=== PATIENT | female | born 1955 | race Two or more races ===

== ENCOUNTER 2019-06-09 16:09 | Inpatient (IN) | payer MEDICARE, OTHER ==
[~2019-06-09] VITALS: Ht 165.1 cm; Wt 82.6 kg
[~2019-06-09 16:09] MED LIST: ALEN70TA6 PO; AMIO200T4 PO; BUPR150T10 PO; CALC0.5C11 PO; CYCLOSPORINE PO; DIPH1TAB PO; ESCI20TA PO; FOLI1TAB16 PO; GABA-532 PO; HYDR-4384 PO; LEVO50TA8 PO; METO-356 PO; MYCO180T3 PO; PANT40TA4 PO; ROSU5TAB PO; TICA90TA PO; WARF3TAB7 PO; WARF4TAB8 PO; ZOLP5TAB8 PO
--- NOTE | 2019-06-09 16:26 | NUR ---
PT BIB EMS FOR SOB FOR THE PAST 13 DAYS, PT IS AAOX3, NOT IN RESPIRATORY DISTRESS, HOOKED TO MONITOR, KEPT RESTED AND COMFORTABLE, WILL CONTINUE TO MONITOR.
--- NOTE | 2019-06-09 16:30 | NUR ---
AT BEDSIDE FOR EVAL.
--- NOTE | 2019-06-09 16:35 | NUR ---
IV LINE ESTABLISHED, BLOOD DRAWNED AND SENT TO LAB.
[2019-06-09] MEDS ORDERED: TICA90TA PO (16:42)
[2019-06-09] MEDS ORDERED: ARIP10TA9 PO (16:42)
[2019-06-09] MEDS ORDERED: ACET-868 PO (16:42)
[2019-06-09] MEDS ORDERED: ALBU18HF2 IH (16:42)
[2019-06-09] MEDS ORDERED: ATOR10TA PO (16:42)
[2019-06-09] MEDS ORDERED: CEFU250T85 PO (16:42)
[2019-06-09] MEDS ORDERED: CALC667C6 PO (16:42)
[2019-06-09] MEDS ORDERED: ESOM40CA PO (16:42)
[2019-06-09] MEDS ORDERED: CODE10LI PO (16:42)
[2019-06-09] MEDS ORDERED: TRAM50TA2 PO (16:42)
[2019-06-09] MEDS ORDERED: SEVE800T7 PO (16:42)
[2019-06-09] MEDS ORDERED: QUET25TA PO (16:42)
--- NOTE | 2019-06-09 16:42 | NUR ---
RED TECH AT BEDSIDE FOR XRAY.
[2019-06-09 16:48] LABS: BASOPHILS # (AUTO) 0.1 /CMM (0.0-0.2); BASOPHILS % (AUTO) 1.2 % (0.0-2.0); EOSINOPHILS % (AUTO) 9.5 % (0.0-6.0); HEMATOCRIT 24 % (33-45); HEMOGLOBIN 7.9 g/dL (11.5-14.8); LYMPHOCYTES # (AUTO) 0.9 /CMM (0.8-4.8); LYMPHOCYTES % (AUTO) 19.1 % (20.0-44.0); MEAN CORPUSCULAR HGB CONC 33 g/dl (31.0-36.0); MEAN CORPUSCULAR VOLUME 94 fL (82-100); MONOCYTES # (AUTO) 0.2 /CMM (0.1-1.30); MONOCYTES % (AUTO) 5.2 % (2.0-12.0); NEUTROPHILS # (AUTO) 3.1 /CMM (1.8-8.9); PLATELET COUNT (AUTO) 184 /CMM (150-450); RED BLOOD CELL COUNT(AUTO) 2.58 MIL/uL (4.0-5.2); WHITE BLOOD COUNT (AUTO) 4.8 K/uL (4.3-11.0)
[2019-06-09 17:00] LABS: CALCIUM, SERUM 8.3 mg/dL (8.5-10.1); CREATININE 3.5 mg/dL (0.6-1.3); POTASSIUM 3.3 mmol/L (3.5-5.1)
[2019-06-09 17:08] LABS: ALBUMIN 2.8 g/dL (3.4-5.0); BILIRUBIN,DIRECT 0.1 mg/dL (0.0-0.2); BILIRUBIN,TOTAL 0.3 mg/dL (0.2-1.0); TOTAL PROTEIN, SERUM 7.9 g/dL (6.4-8.2)
--- NOTE | 2019-06-09 18:16 | NUR ---
osbaldo bryant - paged via exchange
--- NOTE | 2019-06-09 20:28 | NUR ---
REPORT GIVEN TO MICHELLE NUNEZ.
--- NOTE | 2019-06-09 20:45 | NUR ---
DEMAND EQUIPMENT REPAIRER ADMITTING NOTES RECEIVED PT FROM ER VIA [facility] IN STABLE CONDITION. PT A/O X3 AND ABLE TO MAKE NEEDS KNOWN. PT HARD OF HEARING. RESPIRATIONS EVEN AND UNLABORED WITH NO S/S OF ACUTE DISTRESS OR SOB NOTED. PT ON 2L VIA NC TOLERATING WELL. PT WITH RAC #20G PATENT AND INTACT AND SL. NO COMPLAINTS OF PAIN AT THIS TIME. PT REFUSES TELE BOX TO BE PUT ON; PT STATES THAT SHE IS ALLERGIC AND HER SKIN IS SENSITIVE. SAFETY MEASURES IN PLACE WITH BED IN LOWEST LOCKED POSITION WITH SIDE RAILS UP X2. CALL LIGHT WITHIN REACH. WILL CONTINUE TO MONITOR.
--- NOTE | 2019-06-09 21:00 | NUR ---
RN NOTES: GIVEN REPORT TO NIYAH NUNEZ FOR CONTINUITY OF CARE.
--- NOTE | 2019-06-09 21:05 | NUR ---
MS RN NOTES MD STATE THAT PT DOES NOT NEED TO BE ON TELE MONITORING AND WILL BE MED SURG.
[2019-06-09] MEDS ORDERED: ZOLPIDEM TARTRATE 5 MG TABLET PO PRN (21:30)
[2019-06-09] MEDS ORDERED: ALBUTEROL SULFATE INH 18 GM HFA.AER.AD IH PRN (21:30)
[2019-06-09] MEDS ORDERED: ACETAMINOPHEN 325 MG TABLET PO PRN ×2 (21:30)
[2019-06-09] MEDS ORDERED: Z GUARD REMEDY 2 OZ OINT TP PRN ×2 (21:30→23:00)
[2019-06-09] MEDS ORDERED: MAG HYDROX/AL HYDROX/SIMETH 30 ML UDC PO PRN (21:30)
[2019-06-09] MEDS ORDERED: HYDROCODONE/APAP 5/325MG 1 EACH TABLET PO PRN (21:30)
[2019-06-09] MEDS ORDERED: ALENDRONATE 70 MG TABLET PO SCH (21:30)
[2019-06-09] MEDS ORDERED: TRAMADOL HCL 50 MG TABLET PO PRN (21:30)
[2019-06-09] MEDS ORDERED: MAGNESIUM HYDROXIDE 30 ML UDC PO PRN (21:30)
[2019-06-09] MEDS ORDERED: GUAIFENESIN/CODEINE 10 ML UDC PO PRN (21:30)
[2019-06-09] MEDS ORDERED: ONDANSETRON HCL/PF 4 MG/2 ML VIAL IVP PRN (21:30)
[2019-06-09 22:09] VITALS: BP 173/86
--- NOTE | 2019-06-09 22:30 | NUR ---
MS RN NOTES PT BP 173/86. MADE AWARE WITH NO NEW ORDERS. STATED THAT PT NEEDS DIALYSIS AND THAT DIALYSIS WILL TAKE CARE OF IT.
[2019-06-09] MEDS: QUETIAPINE FUMARATE 25 MG TABLET PO SCH (22:58)
[2019-06-09] MEDS: ATORVASTATIN 10 MG TABLET PO SCH (22:58)
[2019-06-09] MEDS: ZOLPIDEM TARTRATE 5 MG TABLET PO SCH (23:30)
[2019-06-10 06:32] LABS: EOSINOPHILS % (AUTO) 22.5 % (0.0-6.0); HEMATOCRIT 23 % (33-45); HEMOGLOBIN 7.7 g/dL (11.5-14.8); LYMPHOCYTES # (AUTO) 0.9 /CMM (0.8-4.8); MEAN CORPUSCULAR HGB CONC 33 g/dl (31.0-36.0); MEAN CORPUSCULAR VOLUME 94 fL (82-100); MONOCYTES # (AUTO) 0.3 /CMM (0.1-1.30); MONOCYTES % (AUTO) 6.3 % (2.0-12.0); NEUTROPHILS # (AUTO) 2.1 /CMM (1.8-8.9); NEUTROPHILS % (AUTO) 49.2 % (43.0-81.0); PLATELET COUNT (AUTO) 182 /CMM (150-450); WHITE BLOOD COUNT (AUTO) 4.3 K/uL (4.3-11.0)
[2019-06-10 06:59] LABS: CALCIUM, SERUM 7.9 mg/dL (8.5-10.1); CREATININE 4.2 mg/dL (0.6-1.3); PHOSPHORUS 3.5 mg/dL (2.5-4.9); POTASSIUM 3.1 mmol/L (3.5-5.1)
--- NOTE | 2019-06-10 07:03 | NUR ---
MS RN NOTES PT IN BED SLEEPING BUT EASILY AWOKEN VERBALLY OR BY TOUCH. PT A/O X3 AND ABLE TO MAKE NEEDS KNOWN. PT HARD OF HEARING. RESPIRATIONS EVEN AND UNLABORED WITH NO S/S OF ACUTE DISTRESS OR SOB NOTED THROUGHOUT SHIFT. PT ON 2L VIA NC TOLERATING WELL. PT WITH RAC #20G PATENT AND INTACT AND SL. NO COMPLAINTS OF PAIN AT THIS TIME. SAFETY MEASURES IN PLACE WITH BED IN LOWEST LOCKED POSITION WITH SIDE RAILS UP X2. CALL LIGHT WITHIN REACH. WILL ENDORSE TO ON COMING NURSE FOR ELOISE.
[2019-06-10 08:00] VITALS: BP 164/74
--- NOTE | 2019-06-10 08:00 | NUR ---
MS RN AM NOTES RECEIVED PT A/O X3 AND ABLE TO MAKE NEEDS KNOWN. PT HARD OF HEARING. RESPIRATIONS EVEN AND UNLABORED WITH NO S/S OF ACUTE DISTRESS OR SOB NOTED. PT ON 2L VIA NC TOLERATING WELL. PT WITH RAC #20G PATENT AND INTACT AND SL. NO COMPLAINTS OF PAIN AT THIS TIME. SAFETY MEASURES IN PLACE WITH BED IN LOWEST LOCKED POSITION WITH SIDE RAILS UP X2. CALL LIGHT WITHIN REACH. WILL CONTINUE TO MONITOR.
[2019-06-10] MEDS: SEVELAMER CARBONATE 800 MG TABLET PO SCH ×3 (08:02→17:04)
[2019-06-10] MEDS: LEVOTHYROXINE SODIUM 50 MCG TABLET PO SCH (08:02)
[2019-06-10] MEDS: TICAGRELOR 90 MG TABLET PO SCH ×2 (08:46→17:03)
[2019-06-10] MEDS: FOLIC ACID 1 MG TABLET PO SCH (08:47)
[2019-06-10] MEDS: PANTOPRAZOLE 40 MG TABLET.DR PO SCH (08:49)
[2019-06-10] MEDS: CALCIUM ACETATE 667 MG TABLET PO SCH ×3 (08:49→17:03)
[2019-06-10 08:51] LABS: FERRITIN 647 ng/mL (8-388)
[2019-06-10 09:09] LABS: IRON, SERUM 47 ug/dl (50-175); TOTAL IRON BINDING CAPACITY 163 ug/dl (250-450)
[2019-06-10] MEDS: AMIODARONE HCL 200 MG TABLET PO SCH (10:13)
[2019-06-10] MEDS: CEFUROXIME AXETIL 250 MG TABLET PO SCH (10:15)
[2019-06-10 10:16] LABS: EOSINOPHILS % (MANUAL) 21 % (0-4); LYMPHOCYTES % (MANUAL) 21 % (16-48); MONOCYTES % (MANUAL) 4 % (0-11.0); NEUTROPHILS % (MANUAL) 54 (42-76)
[2019-06-10] MEDS ORDERED: ALBUTEROL FS 2.5 MG/0.5 ML VIAL.NEB NEB PRN (13:30)
--- NOTE | 2019-06-10 18:47 | NUR ---
PT RESTING IN BED WITH NAUSEA RESOLVED WITH ZOFRAN IV GIVEN.PT C/O THAT SHE FELT NAUSEOUS AT THE SMELL OF THE CARROTS IN HER DINNER TRAY. CALLED BRISASCRAPER BURRER WHO STATED THAT HE WILL DO DIALYSIS ON THE PT SOON. DENIES ANY DISTRESS.CALL LIGHT PLACED WITHIN REACH.
--- NOTE | 2019-06-10 19:10 | NUR ---
MS RN OPENING NOTES Patient received in bed, alert, oriented x 3. Breathing even and unlabored. Not in any distress. Dialysis ongoing at this time. No complaints of pain or discomfort. Safety measures in place. Call light within reach, bed in low, locked position. Will continue to monitor accordingly
[2019-06-10 20:00] VITALS: BP 160/73
[2019-06-10 21:25] VITALS: BP 160/73
--- NOTE | 2019-06-10 21:26 | NUR ---
RN NOTES Dialysis completed. 2,600mL out. V/S post dialysis: BP- 160/73, HR-77, RR- 18, TEMP- 97.8F, SPO2- 97%
[2019-06-10] MEDS: ARIPIPRAZOLE 5 MG TABLET PO SCH (21:30)
[2019-06-10] MEDS: ATORVASTATIN 10 MG TABLET PO SCH (21:30)
[2019-06-10] MEDS: QUETIAPINE FUMARATE 25 MG TABLET PO SCH (21:31)
[2019-06-10] MEDS: ZOLPIDEM TARTRATE 5 MG TABLET PO SCH (22:30)
--- NOTE | 2019-06-11 06:35 | NUR ---
MS RN CLOSING NOTES PATIENT IN BED SLEEPING, EASY TO AROUSE. PT A/O X3 AND ABLE TO MAKE NEEDS KNOWN. PT HARD OF HEARING. RESPIRATIONS EVEN AND UNLABORED WITH NO S/S OF ACUTE DISTRESS OR SOB NOTED THROUGHOUT SHIFT. NO COMPLAINTS OF PAIN AT THIS TIME. SAFETY MEASURES IN PLACE WITH BED IN LOWEST LOCKED POSITION WITH SIDE RAILS UP X2. CALL LIGHT WITHIN REACH. WILL ENDORSE ELOISE TO ON COMING NURSE.
--- NOTE | 2019-06-11 07:10 | NUR ---
MS RN NOTES PATIENT IN BED ALERT ORIENTED X 3. NO ACUTE DISTRESS NOTED. BREATHING UNLABORED. IV ACCESS PATENT AND INTACT, NO REDNESS OR SWELLING NOTED. SAFETY MEASURES IN PLACE. CALL LIGHT WITHIN REACH. WILL CONTINUE TO MONITOR ACCORDINGLY.
[2019-06-11 07:47] LABS: BASOPHILS % (AUTO) 1.1 % (0.0-2.0); EOSINOPHILS % (AUTO) 24.8 % (0.0-6.0); HEMATOCRIT 25 % (33-45); LYMPHOCYTES # (AUTO) 0.6 /CMM (0.8-4.8); LYMPHOCYTES % (AUTO) 14.8 % (20.0-44.0); MEAN CORPUSCULAR HGB CONC 32 g/dl (31.0-36.0); MEAN CORPUSCULAR VOLUME 94 fL (82-100); MONOCYTES # (AUTO) 0.3 /CMM (0.1-1.30); MONOCYTES % (AUTO) 7.1 % (2.0-12.0); NEUTROPHILS # (AUTO) 2.2 /CMM (1.8-8.9); NEUTROPHILS % (AUTO) 52.2 % (43.0-81.0); PLATELET COUNT (AUTO) 184 /CMM (150-450); RED BLOOD CELL COUNT(AUTO) 2.64 MIL/uL (4.0-5.2); WHITE BLOOD COUNT (AUTO) 4.2 K/uL (4.3-11.0)
[2019-06-11] MEDS: PANTOPRAZOLE 40 MG TABLET.DR PO SCH (07:48)
[2019-06-11] MEDS: LEVOTHYROXINE SODIUM 50 MCG TABLET PO SCH (07:48)
[2019-06-11 08:00] VITALS: BP 147/61
[2019-06-11 08:12] LABS: ALANINE AMINOTRANSFERASE 9 U/L (12-78); ALBUMIN 2.4 g/dL (3.4-5.0); ALKALINE PHOSPHATASE 126 U/L (46-116); ASPARTATE AMINOTRANSFERASE 10 U/L (15-37); BILIRUBIN,TOTAL 0.3 mg/dL (0.2-1.0); CALCIUM, SERUM 8.3 mg/dL (8.5-10.1); CARBON DIOXIDE 30 mmol/L (21-32); CHLORIDE 101 mmol/L (98-107); GLUCOSE 97 mg/dL (74-106); MAGNESIUM 1.9 mg/dL (1.8-2.4); PHOSPHORUS 3.1 mg/dL (2.5-4.9); POTASSIUM 3.5 mmol/L (3.5-5.1); SODIUM SERUM 140 mmol/L (136-145); UREA NITROGEN, BLOOD 17 mg/dL (7-18)
[2019-06-11] MEDS: SEVELAMER CARBONATE 800 MG TABLET PO SCH ×3 (08:19→17:19)
[2019-06-11] MEDS: CALCIUM ACETATE 667 MG TABLET PO SCH ×3 (08:20→17:19)
[2019-06-11 08:53] LABS: EOSINOPHILS % (MANUAL) 23 % (0-4); LYMPHOCYTES % (MANUAL) 16 % (16-48); MONOCYTES % (MANUAL) 10 % (0-11.0); NEUTROPHILS % (MANUAL) 51 (42-76)
[2019-06-11] MEDS: CEFUROXIME AXETIL 250 MG TABLET PO SCH (09:26)
[2019-06-11] MEDS: TICAGRELOR 90 MG TABLET PO SCH ×2 (09:26→17:19)
[2019-06-11] MEDS: AMIODARONE HCL 200 MG TABLET PO SCH (09:27)
[2019-06-11] MEDS: FOLIC ACID 1 MG TABLET PO SCH (09:27)
--- NOTE | 2019-06-11 15:00 | NUR ---
MS RN NOTES SEEN AND EVALUATED BY TEODORO AGUIAR WITH NEW ORDERS MADE. NOTED AND CARRIED OUT.
[2019-06-11 16:00] VITALS: BP 168/70
[2019-06-11] MEDS: LEVOFLOXACIN 250 MG /D5W 50 ML 250 MG in PREMIX 1 EA IV SCH (16:37)
--- NOTE | 2019-06-11 18:58 | NUR ---
MS RN NOTES PATIENT IN BED ALERT ORIENTED X 3. NO ACUTE DISTRESS NOTED. BREATHING UNLABORED. IV ACCESS PATENT AND INTACT, NO REDNESS OR SWELLING NOTED.DUE MEDICATIONS GIVEN, NO ASE NOTED. NEEDS ATTENDED AND ANTICIPATED. KEPT CLEAN DRY AND COMFORTABLE. SAFETY MEASURES IN PLACE. CALL LIGHT WITHIN REACH. WILL ENDORSE TO NIGHT NURSE FOR CONTINUITY OF CARE.
--- NOTE | 2019-06-11 19:25 | NUR ---
MS/RN OPENING NOTES RECEIVED PATIENT IN [place], RESTING IN BED, RESPIRATIONS EVEN AND UNLABORED, ON 2LITER OXYGEN VIA NC, SKIN WARM TO TOUCH. ABLE TO VERBALIZE NEEDS, IV SITE ON RIGHT AC WITH RIGHT GROIN FISTULA, HEMODIALYSIS EVERY MWF, B/P ON LEFT LEG ONLY. BED LOCKED, CALL LIGHTS WITHIN REACH. WILL MONITOR, INSTRUCTED TO CALL FOR ASSISTANCE, WILL MONITOR.RECEIVED ENDORSEMENT FROM AM RN FOR ELOISE.
[2019-06-11 19:43] VITALS: BP 159/64
[2019-06-11 20:00] VITALS: BP 159/64
--- NOTE | 2019-06-11 21:00 | NUR ---
MS/RN NOTES' PATIENT WITH SCHEDULED MEDICATION FOR SLEEP AND GIVEN, TO CHECK IN THE MORNING FOR PHOTO TO BE TAKEN OF DISCOLORATION OF BODY PARTS AND SACRAL AREA,,REDNESS WILL FOLOW UP AGAIN IN MORNING ,
[2019-06-11] MEDS: ARIPIPRAZOLE 5 MG TABLET PO SCH (21:26)
[2019-06-11] MEDS: ATORVASTATIN 10 MG TABLET PO SCH (21:26)
[2019-06-11] MEDS: ZOLPIDEM TARTRATE 5 MG TABLET PO SCH (21:26)
--- NOTE | 2019-06-11 21:26 | NUR ---
MS/RN NOTES SLEEP MEDICATION AMBIEN 10 MG PO GIVEN SCHEDULED MEDICATION. MONITORED FOR SLEEP.
[2019-06-11] MEDS: QUETIAPINE FUMARATE 25 MG TABLET PO SCH (21:27)
--- NOTE | 2019-06-12 06:24 | NUR ---
MS/RN NOTES PATIENT ABLE TO SLEEP DURING THE NIGHT, ALERT, ORIENTED X3, ABLE TO VERBALIZE NEEDS, PARTICIPATIVE TO CARE, RESPIRATIONS EVEN AND UNLABORED, PHOTO OF DICOLORATION AND REDNESS WAS DONE, BED LOCKED, CALL LIGHTS WITHIN REACH, WILL MONITOR AND WILL ENDORSE TO AM RN FOR ELOISE.
[2019-06-12 06:25] LABS: BASOPHILS % (AUTO) 0.9 % (0.0-2.0); HEMATOCRIT 27 % (33-45); HEMOGLOBIN 8.7 g/dL (11.5-14.8); LYMPHOCYTES % (AUTO) 19.7 % (20.0-44.0); MEAN CORPUSCULAR HGB CONC 32 g/dl (31.0-36.0); MEAN CORPUSCULAR VOLUME 95 fL (82-100); MONOCYTES # (AUTO) 0.3 /CMM (0.1-1.30); MONOCYTES % (AUTO) 6.9 % (2.0-12.0); NEUTROPHILS # (AUTO) 2.2 /CMM (1.8-8.9); NEUTROPHILS % (AUTO) 45.4 % (43.0-81.0); PLATELET COUNT (AUTO) 195 /CMM (150-450); RED BLOOD CELL COUNT(AUTO) 2.87 MIL/uL (4.0-5.2); WHITE BLOOD COUNT (AUTO) 4.8 K/uL (4.3-11.0)
[2019-06-12 06:37] LABS: EOSINOPHILS % (AUTO) 27.1 % (0.0-6.0)
[2019-06-12 06:55] LABS: CALCIUM, SERUM 8.5 mg/dL (8.5-10.1); CREATININE 5.7 mg/dL (0.6-1.3); MAGNESIUM 2.1 mg/dL (1.8-2.4); PHOSPHORUS 3.1 mg/dL (2.5-4.9); POTASSIUM 3.6 mmol/L (3.5-5.1)
--- NOTE | 2019-06-12 07:25 | NUR ---
M/S RN NOTES PATIENT RESTING, LYING IN BED, NO RESPIRATORY DISTRESS, ON O2 2L VIA NASAL CANULA. PATIENT WITH NO C/O PAIN AT THIS TIME. IV HL ON THE RAC #20G, INTACT AND PATENT. PATIENT'S NEEDS ATTENDED. BED ON LOWEST LOCKED POSITION, CALL LIGHT WITHIN REACH. WILL CONTINUE TO MONITOR.
[2019-06-12 07:27] LABS: MONOCYTES % (MANUAL) 8 % (0-11.0); NEUTROPHILS % (MANUAL) 49 (42-76)
[2019-06-12 07:28] LABS: EOSINOPHILS % (MANUAL) 24 % (0-4); LYMPHOCYTES % (MANUAL) 19 % (16-48)
[2019-06-12] MEDS: CALCIUM ACETATE 667 MG TABLET PO SCH ×3 (07:54→18:00)
[2019-06-12] MEDS: SEVELAMER CARBONATE 800 MG TABLET PO SCH ×3 (07:54→18:00)
[2019-06-12] MEDS: LEVOTHYROXINE SODIUM 50 MCG TABLET PO SCH (07:55)
[2019-06-12] MEDS: PANTOPRAZOLE 40 MG TABLET.DR PO SCH (07:55)
[2019-06-12 08:00] VITALS: BP 160/67
[2019-06-12] MEDS: AMIODARONE HCL 200 MG TABLET PO SCH (09:00)
[2019-06-12] MEDS: FOLIC ACID 1 MG TABLET PO SCH (09:00)
[2019-06-12] MEDS: TICAGRELOR 90 MG TABLET PO SCH ×2 (09:01→17:00)
[2019-06-12] MEDS: CEFUROXIME AXETIL 250 MG TABLET PO SCH (09:01)
[2019-06-12] MEDS ORDERED: hydrALAZINE HCL 25 MG TABLET PO PRN (16:30)
[2019-06-12] MEDS: AMLODIPINE BESYLATE 5 MG TABLET PO SCH (16:30)
--- NOTE | 2019-06-12 16:30 | NUR ---
M/S RN NOTES NORVASC NOT GIVEN, PATIENT HAVING DIALYSIS
[2019-06-12] MEDS: LACTOBACILLUS RHAMNOSUS GG 1 EACH CAP.SPRINK PO SCH (17:00)
--- NOTE | 2019-06-12 18:15 | NUR ---
M/S RN NOTES PATIENT AWAKE LYING IN BED, NO RESPIRATORY DISTRESS, NO C/O PAIN AT THIS TIME. IV ACCESS SITE INTACT AND PATENT. PATIENT'S NEEDS ATTENDED. BED ON LOWEST LOCKED POSITION, CALL LIGHT WITHIN REACH. WILL ENDORSE TO ONCOMING NURSE
--- NOTE | 2019-06-12 18:23 | NUR ---
M/S RN NOTES MEDICATIONS NOT GIVEN FOR 1700 AND 1800, PATIENT ON DIALYSIS
--- NOTE | 2019-06-12 18:30 | NUR ---
M/S RN NOTES PATIENT DONE WITH HD, 2000ML OUT. PATIENT'S VSS. PATIENT IN NO ACUTE DISTRESS.
--- NOTE | 2019-06-12 19:48 | NUR ---
RN MS OPENING NOTES RECEIVED PATIENT IN BED AWAKE, ALERT AND ORIENTED X3, VERBALLY RESPONSIVE, ABLE TO MAKE NEEDS KNOWN. BREATHING EVEN AND UNLABORED. NO SOB NOTED. ON 2LPM VIA NC. DENIES PAIN OR DISCOMFORT. IV ON RIGHT AC INTACT AND PATENT. PATIENT ALSO NOTED WITH RIGHT GROIN FISTULA, CLEAN DRY AND INTACT. PATIENT IS S/P DIALYSIS TODAY, NO ADVERSE REACTIONS NOTED. ALL OTHER NEEDS ATTENDED TO. SAFETY MEASURES IN PLACE. CALL LIGHT WITHIN REACH. WILL CONTINUE TO MONITOR.
[2019-06-12 20:00] VITALS: BP 154/66
[2019-06-12 20:32] LABS: APPEARANCE,URINE SL CLOUDY (CLEAR); BILIRUBIN,URINE 1+ (NEGATIVE); BLOOD, URINE 2+ Ery/uL (NEGATIVE); COLOR,URINE YELLOW (YELLOW); KETONES,URINE NEGATIVE (NEGATIVE); LEUKOCYTE ESTERASE ,URINE TRACE (NEGATIVE); NITRITE, URINE NEGATIVE (NEGATIVE); PROTEIN,URINE 3+ mg/dl (NEGATIVE); UGLUCOSE TRACE mg/dL (NEGATIVE); UROBILINOGEN,URINE 0.2 EU/dL (0.2)
[2019-06-12 20:38] LABS: BACTERIA,URINE 2+ /HPF (None Seen); SQUAMOUS EPITHELIAL CELL,UR Many /HPF (None Seen)
[2019-06-12] MEDS: ATORVASTATIN 10 MG TABLET PO SCH (22:10)
[2019-06-12] MEDS: ARIPIPRAZOLE 5 MG TABLET PO SCH (22:10)
[2019-06-12] MEDS: QUETIAPINE FUMARATE 25 MG TABLET PO SCH (22:10)
[2019-06-12] MEDS: ZOLPIDEM TARTRATE 5 MG TABLET PO SCH (22:10)
[2019-06-13 06:25] LABS: BASOPHILS % (AUTO) 0.8 % (0.0-2.0); HEMATOCRIT 25 % (33-45); LYMPHOCYTES # (AUTO) 0.9 /CMM (0.8-4.8); MEAN CORPUSCULAR HGB CONC 32 g/dl (31.0-36.0); MEAN CORPUSCULAR VOLUME 95 fL (82-100); MONOCYTES # (AUTO) 0.3 /CMM (0.1-1.30); MONOCYTES % (AUTO) 6.1 % (2.0-12.0); NEUTROPHILS # (AUTO) 2.4 /CMM (1.8-8.9); NEUTROPHILS % (AUTO) 46.8 % (43.0-81.0); PLATELET COUNT (AUTO) 190 /CMM (150-450); RED BLOOD CELL COUNT(AUTO) 2.62 MIL/uL (4.0-5.2); WHITE BLOOD COUNT (AUTO) 5.1 K/uL (4.3-11.0)
[2019-06-13 06:28] LABS: EOSINOPHILS % (AUTO) 28.3 % (0.0-6.0)
[2019-06-13 06:34] LABS: CALCIUM, SERUM 8.2 mg/dL (8.5-10.1); PHOSPHORUS 2.6 mg/dL (2.5-4.9); POTASSIUM 3.8 mmol/L (3.5-5.1)
--- NOTE | 2019-06-13 07:14 | NUR ---
OPENING RECEIVED PT ON ROOM AIR AND IS TOLERATING WELL. PT SITTING UP ON BED AT THIS TIME COMPLAINING OF MILD UPPER BACK PAIN. PT HAS IV ON L FOREARM #22G AND IS PATENT AND INTACT. CURRENTLY H/L. PT IS A/OX3. NO SOB NOTED. BED KEPT IN LOW, LOCKED POSITION, AND SIDE RAILS X 2UP. . WILL CONTINUE TO MONITOR PT.
--- NOTE | 2019-06-13 07:34 | NUR ---
RN MS CLOSING NOTES PATIENT RESTING IN BED. NO ACUTE CHANGES THROUGHOUT SHIFT. BREATHING EVEN AND UNLABORED. NO SOB NOTED. ON 2LPM VIA NC. DENIES PAIN OR DISCOMFORT. IV ON RIGHT AC INTACT AND PATENT. RIGHT GROIN FISTULA, CLEAN DRY AND INTACT. ALL OTHER NEEDS ATTENDED TO. SAFETY MEASURES IN PLACE. CALL LIGHT WITHIN REACH. WILL ENDORSE TO ONCOMING NURSE FOR ELOISE.
[2019-06-13] MEDS: PANTOPRAZOLE 40 MG TABLET.DR PO SCH (07:41)
[2019-06-13] MEDS: CALCIUM ACETATE 667 MG TABLET PO SCH ×3 (07:42→17:26)
[2019-06-13] MEDS: SEVELAMER CARBONATE 800 MG TABLET PO SCH ×3 (07:42→17:26)
[2019-06-13] MEDS: LEVOTHYROXINE SODIUM 50 MCG TABLET PO SCH (07:42)
[2019-06-13 08:40] LABS: LYMPHOCYTES % (MANUAL) 18 % (16-48); MONOCYTES % (MANUAL) 3 % (0-11.0); NEUTROPHILS % (MANUAL) 50 (42-76)
[2019-06-13 08:41] LABS: EOSINOPHILS % (MANUAL) 29 % (0-4)
--- NOTE | 2019-06-13 09:44 | NUR ---
WOUND CARE CONSULT: PT PRESENTS WITH SACRAL SCAR, DRY SKIN ON ARMS WITH BROWNISH DISCOLORATION, SLIGHT REDNESS TO BREASTFOLDS AND ABDOMINAL FOLDS WITH ITCHING PER PT REPORT, ALL PRESENT ON ADMISSION. PT REQUESTING ANTIFUNGAL POWDER. ALL SKIN PROTECTION RECOMMENDATIONS DISCUSSED WITH NURSING STAFF. WILL SEE PRN. ESPAÑA IN AGREEMENT WITH PLAN OF CARE. Addendum: 06/13/19 at 0948 by VERITO PEREZ WNDNU Amended: Links added.
[2019-06-13] MEDS ORDERED: MINERAL OIL/PETROLATUM,WHITE 120 GM JAR TP SCH (10:00)
[2019-06-13] MEDS: TICAGRELOR 90 MG TABLET PO SCH ×2 (11:03→16:40)
[2019-06-13] MEDS: FOLIC ACID 1 MG TABLET PO SCH (11:03)
[2019-06-13] MEDS: AMLODIPINE BESYLATE 5 MG TABLET PO SCH (11:04)
[2019-06-13] MEDS: LACTOBACILLUS RHAMNOSUS GG 1 EACH CAP.SPRINK PO SCH ×2 (11:04→16:38)
[2019-06-13] MEDS: NYSTATIN TOP POWDER 15 GM BOTTLE TP SCH ×2 (11:05→16:41)
[2019-06-13] MEDS: AMIODARONE HCL 200 MG TABLET PO SCH (11:06)
--- NOTE | 2019-06-13 15:00 | NUR ---
text TEXTED Dr AGUIAR CONCERNING DISCHARGE ANTIBIOTICS
--- NOTE | 2019-06-13 16:23 | NUR ---
TEXT UPDATED DR AGUIAR CONCERNING PT PHARMACY WHICH IS [place] [facility] CALLED [facility] FROM [facility] WHO GAVE PHARMACY NUMBER AND INFORMATION
[2019-06-13] MEDS: LEVOFLOXACIN 250 MG /D5W 50 ML 250 MG in PREMIX 1 EA IV SCH (16:38)
[2019-06-13 18:40] VITALS: BP 144/69
--- NOTE | 2019-06-13 18:41 | NUR ---
maye pt discharge to [facility] assisted living leaving now by [phone] PIV removed from RAC with tip intact all belongs taken by pt including walker i-pad and i-phone. pt medically stable.
== END 2019-06-13 18:45 | disposition home health service (06) | DRG 291 ==
LOC: ER 16:13 → TELE 19:41 → MED 21:51
PROVIDERS: ADMIT Family Medicine; ATTEND Internal Medicine
PROC: 5A1D70Z Performance of Urinary Filtration, Intermittent, Less than 6 Hours Per Day (ICD-10-PCS; principal; 2019-06-10)
DX: I13.2 Hypertensive heart and chronic kidney disease with heart failure and with stage 5 chronic kidney disease, or end stage renal disease (principal); N18.6 End stage renal disease; E44.0 Moderate protein-calorie malnutrition; M84.48XA Pathological fracture, other site, initial encounter for fracture; E11.22 Type 2 diabetes mellitus with diabetic chronic kidney disease; I50.9 Heart failure, unspecified; Z99.2 Dependence on renal dialysis; E03.9 Hypothyroidism, unspecified; D63.8 Anemia in other chronic diseases classified elsewhere; Z79.51 Long term (current) use of inhaled steroids; Z79.899 Other long term (current) drug therapy; E78.5 Hyperlipidemia, unspecified; I25.10 Atherosclerotic heart disease of native coronary artery without angina pectoris; Z66 Do not resuscitate; Z79.02 Long term (current) use of antithrombotics/antiplatelets; Z82.3 Family history of stroke; Z79.01 Long term (current) use of anticoagulants; Z80.0 Family history of malignant neoplasm of digestive organs; I48.91 Unspecified atrial fibrillation; E11.51 Type 2 diabetes mellitus with diabetic peripheral angiopathy without gangrene; E11.65 Type 2 diabetes mellitus with hyperglycemia; N30.90 Cystitis, unspecified without hematuria; J40 Bronchitis, not specified as acute or chronic; M85.9 Disorder of bone density and structure, unspecified
CPT/HCPCS: 36415; 71045-TC; 80048-TC; 80053-TC; 80061-TC; 80076-TC; 81000-TC; 82728-TC; 83540-TC; 83605-TC; 83735-TC; 83880; 84100-TC; 84484-TC; 85025-TC; 85730-TC; 86706; 87040-TC; 87081-TC; 87086-TC; 87340; 90935-TC; 93307-TC; A4216; G0378; J1956; J2405; J7030